=== PATIENT | male | born 1950 | race Caucasian/White ===

== ENCOUNTER 2018-05-19 09:17 | Outpatient (CLI) | payer MEDICARE, OTHER ==
--- NOTE | 2018-05-19 15:29 | NM ---
NUCLEAR MEDICINE [facility] BRAIN SCAN: DATE: 05/19/2018. HISTORY: A 67-year-old male with G20, Parkinson's disease. TECHNIQUE: 130 mg of potassium iodine given p.o. 1 hour prior to injection of Ioflupane. 4.5 mCi of I-123 Ioflupane injected IV. 3 hours later, axial SPECT images of the brain obtained. FINDINGS: There is uptake of radiopharmaceutical in the bilateral caudate nuclei and bilateral putamina. The u ptake in the left caudate head is slightly greater than that of the right. IMPRESSION: No convincing evidence of Parkinson's disease. POS: [facility]
== END 2018-05-19 09:18 | disposition home or self-care (01) ==
LOC: NM 09:17
PROVIDERS: ATTEND Psychiatry & Neurology Neurology
DX: G20 Parkinson's disease (principal)
CPT/HCPCS: 78607; A9584

== ENCOUNTER 2021-04-11 08:39 | Outpatient (CLI) | payer MEDICARE, OTHER | END 2021-04-11 08:40 | disposition home or self-care (01) | LOC: MRI 08:39 | PROVIDERS: ATTEND Psychiatry & Neurology Neurology | DX: G20 Parkinson's disease (principal) | CPT/HCPCS: 70551 ==

== ENCOUNTER 2022-03-30 10:04 | Outpatient (CLI) | payer MEDICARE, OTHER | END 2022-03-30 10:05 | disposition home or self-care (01) | LOC: MRI 10:04 | PROVIDERS: ATTEND Psychiatry & Neurology Neurology | DX: M47.26 Other spondylosis with radiculopathy, lumbar region (principal); M47.27 Other spondylosis with radiculopathy, lumbosacral region; M51.17 Intervertebral disc disorders with radiculopathy, lumbosacral region; M48.07 Spinal stenosis, lumbosacral region; M47.25 Other spondylosis with radiculopathy, thoracolumbar region | CPT/HCPCS: 72148 ==

== ENCOUNTER 2022-11-27 09:21 | Outpatient (CLI) | payer MEDICARE, OTHER | END 2022-11-27 09:22 | disposition home or self-care (01) | LOC: BICMRI 09:21 | PROVIDERS: ATTEND Specialist | DX: M51.17 Intervertebral disc disorders with radiculopathy, lumbosacral region (principal); M47.817 Spondylosis without myelopathy or radiculopathy, lumbosacral region; M47.816 Spondylosis without myelopathy or radiculopathy, lumbar region | CPT/HCPCS: 72148 ==

== ENCOUNTER 2023-01-12 09:43 | Outpatient (CLI) | payer MEDICARE, OTHER ==
[2023-01-12 11:11] LABS: Hematocrit 43.5 % (38.8-50.0); Hemoglobin 14.7 g/dL (13.5-17.5); Mean Corpuscular HGB CONC 33.8 g/dL (32.0-36.0); Mean Corpuscular Hemoglobin 31.2 pg (27.0-33.0); Mean Corpuscular Volume 92.4 fl (81.2-95.1); Platelet Count 232 10x3/uL (150-450); RBC Distribution Width 12.6 % (11.5-14.5); Red Blood Cell (RBC) Count 4.71 10x6/uL (4.32-5.72); White Blood Cell (WBC) Count 4.6 10x3/uL (3.5-10.5)
[2023-01-12 11:33] LABS: Anion Gap 13 mmol/L (10-20); BUN (Urea Nitrogen) 14 mg/dL (8.4-25.7); Calc. Creatinine Clearance 0 mL/min (70-130); Carbon Dioxide 27 mmol/L (23-31); Chloride 106 mmol/L (98-107); Potassium 4.5 mmol/L (3.5-5.1); Sodium 141 mmol/L (136-145)
[2023-01-12 11:34] LABS: Calcium 8.7 mg/dL (7.8-10.44); Estimated GFR 59; Glucose 106 mg/dL (83-110)
== END 2023-01-12 09:44 | disposition home or self-care (01) ==
LOC: LABBT 09:43
PROVIDERS: ATTEND Neurological Surgery
DX: Z01.818 Encounter for other preprocedural examination (principal); M54.16 Radiculopathy, lumbar region
CPT/HCPCS: 80048; 85027; 93005; 93010